=== PATIENT | male | born 1960 ===

== ENCOUNTER 2018-02-22 19:44 | Emergency (ER) | payer OTHER ==
[~2018-02-22] VITALS: Ht 167.6 cm; Wt 76.2 kg
--- NOTE | 2018-02-22 20:37 | NUR ---
DR. MARQUEZ AT BEDSIDE FOR MSE.
[2018-02-22] MEDS ORDERED: OXYCODONE/APAP 5-325 MG TABLET PO ONE (21:30)
[2018-02-22] MEDS ORDERED: OXYCODONE/APAP 5-325 MG TABLET ONE (21:31)
--- NOTE | 2018-02-22 22:30 | NUR ---
Patient discharged to home in stable conditon. Written and verbal after care instructions given. Patient verbalizes understanding of instructions. PATIENT LEFT WITH STABLE GAIT.
[2018-02-22 23:26] VITALS: BP 111/66
== END 2018-02-22 23:26 | disposition home or self-care (01) ==
LOC: ER 19:46
DX: M54.2 Cervicalgia (principal); M25.562 Pain in left knee; Z88.0 Allergy status to penicillin
CPT/HCPCS: A4663